=== PATIENT | male | born 1955 | race Caucasian/White ===

== ENCOUNTER → 2020-07-02 13:33 | Outpatient (CLI) | payer MEDICARE, SELFPAY ==
--- NOTE | 2020-07-02 13:33 | CT_ITS ---
PROCEDURE: CT ABDOMEN PELVIS WO CON CLINICAL INDICATION: RIGHT SIDED FLANK PAIN X YEARS IMTERMITTENLY COMPARISON: No exams were available for comparison TECHNIQUE: Axial images obtained with sagittal and coronal reformats. All CT scans at the facility use one or more dose reduction, viz: automated exposure control, ma/kV adjustment per patient size (including targeted exams where dose is matched to indication, i.e. head), or iterative reconstruction technique. FINDINGS: LOWER THORAX: No acute finding ABDOMEN & PELVIS: There are multiple hypodense lesions of the liver in both right and left hepatic lobes. Largest lesion is in the left hepatic lobe measuring 3 cm. This may represent a hepatic cyst and may be confirmed with ultrasound. The gallbladder, spleen, adrenal glands, and pancreas have an unremarkable appearance. There is a 3 mm nonobstructing stone in the upper pole of the right kidney. No left renal calculi. No ureteral calculi. No hydronephrosis. No evidence of appendicitis. Stomach is filled with particular matter. There are scattered colonic diverticula but no evidence of diverticulitis. There is a small umbilical hernia containing fat. There are small bilateral inguinal hernias containing fat. No acute bony findings. IMPRESSION: 1. Nonobstructing right nephrolithiasis. 2. Multiple hypodensities of the liver which may represent hepatic cyst and may be confirmed with ultrasound. 3. Small umbilical and small bilateral inguinal hernias containing fat. 4. Colonic diverticulosis without diverticulitis Dictated by: Doe Madrid MD 07/03/2020 13:35 Doe Madrid MD in [facility] 07/03/2020 13:35
== END ==
PROVIDERS: PCP Family Medicine; Visit Provider Family Medicine
DX: N23 Unspecified renal colic (principal)
CPT/HCPCS: 74176

== ENCOUNTER → 2020-08-05 08:26 | Outpatient (CLI) | payer MEDICARE, SELFPAY ==
--- NOTE | 2020-08-05 08:26 | US_ITS ---
PROCEDURE: US LIVER CLINICAL INDICATION: ct shows multiple densities in the liver Evaluate multiple liver lesions cystic or solid nature. COMPARISON: CT CT ABDOMEN PELVIS WO CON from 07/02/2020 FINDINGS: PANCREAS: Unremarkable. No obvious mass or abnormal fluid collection. No ductal dilatation LIVER: There are multiple cysts present within the liver corresponding to the CT abnormalities. The largest is in the hilum of the liver measuring approximately 3 cm. No suspicious solid lesions are evident. There are at least 12 cyst identified. RIGHT KIDNEY: Unremarkable. Normal size and echogenicity. No hydronephrosis GALLBLADDER: There is a gallstone noted. Common duct is normal at 3 mm. No gallbladder wall thickening or pericholecystic fluid. IMPRESSION: 1. Multiple liver lesions represent hepatic cysts. 2. Cholelithiasis Dictated by: Doe Madrid MD 08/05/2020 17:50 Doe Madrid MD in [facility] 08/05/2020 17:50
== END ==
PROVIDERS: PCP Family Medicine; Visit Provider Family Medicine
DX: R93.5 Abnormal findings on diagnostic imaging of other abdominal regions, including retroperitoneum (principal)
CPT/HCPCS: 76705